=== PATIENT | male | born 1950 | race African-American/Black ===

== ENCOUNTER 2018-03-30 18:43 | Inpatient (IN) | payer OTHER, MEDICAID ==
[~2018-03-30] VITALS: Ht 165.1 cm; Wt 67.6 kg
[2018-03-30 19:30] LABS: BASOPHILS % 0.4 % (0.0-2.0); EOSINOPHILS % 0.5 % (0.0-5.0); HEMATOCRIT. 38.9 % (42.0-52.0); HEMOGLOBIN. 12.9 g/dL (14.0-18.0); LYMPHOCYTES % 18.3 % (20.0-50.0); MEAN CORPUSCULAR VOLUME 87.7 fL (80.0-94.0); MEAN PLATELET VOLUME 10.5 fl (7.4-10.4); MONOCYTES % 8.6 % (2.0-8.0); NEUTROPHILS % 72.2 % (40.0-76.0); PLATELET 177 x1000/uL (130-400); RED BLOOD CELL COUNT 4.44 mill/uL (4.7-6.1); RED CELL DISTRIBUTION WIDTH 14.1 % (11.6-14.6)
[2018-03-30 19:35] LABS: CHLORIDE 106 mEq/L (98-107)
[2018-03-30 19:37] LABS: INR 0.9; PROTHROMBIN TIME 9.6 sec (9.4-11.6)
[2018-03-30] MEDS ORDERED: ENOXAPARIN 60MG/0.6ML SYR SUBCUT ONE (21:30)
[2018-03-30] MEDS ORDERED: MAGNESIUM/ALUMINUM HYDROXIDE/SIMETHICONE 30ML UDC PO PRN (23:15)
[2018-03-30] MEDS ORDERED: TEMAZEPAM 15MG CAPSULE PO PRN (23:15)
[2018-03-30] MEDS ORDERED: DIPHENHYDRAMINE 50MG/ML VIAL IV PRN (23:15)
[2018-03-30] MEDS ORDERED: ACETAMINOPHEN 325MG TABLET PO PRN (23:15)
[2018-03-30] MEDS ORDERED: ONDANSETRON HCL 4MG/2ML VIAL IV PRN (23:15)
[2018-03-30] MEDS ORDERED: CLOP75TA33 MT (23:32)
[2018-03-30] MEDS ORDERED: ATOR-2 MT (23:32)
[2018-03-30] MEDS ORDERED: N325 SL (23:32)
[2018-03-30] MEDS ORDERED: AMLO-375 MT (23:32)
[2018-03-30] MEDS ORDERED: HYDR-4135 MT (23:32)
[2018-03-30] MEDS ORDERED: LOSA-20 MT (23:32)
[2018-03-30] MEDS ORDERED: ERGO500013 MT (23:32)
[2018-03-30 23:55] VITALS: BP 155/77
[2018-03-31 00:10] VITALS: BP 155/77
[2018-03-31] MEDS ORDERED: ONDANSETRON 4MG ODT PO PRN (00:45)
[2018-03-31 04:00] VITALS: BP 153/79
[2018-03-31] MEDS: HYDRALAZINE HCL 50MG TABLET PO SCH ×2 (06:43→13:42)
[2018-03-31] MEDS: SODIUM CHLORIDE 0.9% INJ 3ML FLUSH IVF SCH ×2 (06:44→13:41)
[2018-03-31 08:00] VITALS: BP 137/79
[2018-03-31] MEDS ORDERED: CLOPIDOGREL 75MG TABLET PO SCH (09:00)
[2018-03-31] MEDS ORDERED: HYDROCHLOROTHIAZIDE 12.5MG CAPSULE PO SCH (09:00)
[2018-03-31] MEDS ORDERED: LOSARTAN POTASSIUM 100 MG TABLET PO SCH (09:00)
[2018-03-31] MEDS ORDERED: ENOXAPARIN 80MG/0.8ML SYR SUBCUT SCH ×2 (10:00→21:00)
[2018-03-31 12:00] VITALS: BP 141/76
[2018-03-31 16:00] VITALS: BP 151/80
[2018-03-31 19:10] VITALS: BP 145/83
[2018-03-31] MEDS ORDERED: ATORVASTATIN CALCIUM 40MG TABLET PO SCH (21:00)
[2018-03-31] MEDS ORDERED: FAMOTIDINE 20MG TABLET PO SCH (21:00)
== END 2018-03-31 21:30 | disposition short-term general hospital (02) | DRG 300 ==
LOC: ER 19:43 → 6EST 21:37 → EDBEDREQ 21:39 → EDBEDREQSVC 21:39 → EDBEDREQTM 21:39 → ENRESERV 23:16
PROVIDERS: ADMIT Internal Medicine; ATTEND Internal Medicine
DX: I82.432 Acute embolism and thrombosis of left popliteal vein (principal); R47.01 Aphasia; I69.354 Hemiplegia and hemiparesis following cerebral infarction affecting left non-dominant side; I11.9 Hypertensive heart disease without heart failure; R26.9 Unspecified abnormalities of gait and mobility; E78.00 Pure hypercholesterolemia, unspecified; Z82.49 Family history of ischemic heart disease and other diseases of the circulatory system; Z79.899 Other long term (current) drug therapy
CPT/HCPCS: 36415; 71045; 80053; 83880; 84484; 85025; 85610; 93005; 93971; 96372; 99285; J1650